=== PATIENT | male | born 1960 | race Caucasian/White ===

== ENCOUNTER 2021-12-25 08:00 | Outpatient (CLI) | payer OTHER, SELFPAY ==
--- NOTE | ~2021-12-25 | CT_ITS ---
EXAMINATION: CT abdomen pelvis wo/w con DATE: 12/25/2021 08:40 INDICATION: Microscopic hematuria TECHNIQUE: Computed tomography (CT) of the abdomen and pelvis was performed without intravenous contr ast. CT of the abdomen and pelvis was then performed with a total of 130 mL Omnipaque 350 intravenous contrast using a double-bolus technique for simultaneous opacification of the renal parenchyma and r enal collecting system. The dose-length product (DLP) was 2110.09 mGy-cm. Automated exposure control and iterative reconstruction technique were employed. COMPARISON: None FINDINGS: Minimal dependent atelectasis is present in the lung bases. The heart size is normal. The l iver, spleen, gallbladder, and adrenal glands are normal. Punctate calcification in the tail of the p ancreas may reflect chronic pancreatitis. There is a 1.2 cm cyst of the right kidney upper pole. Ther e is a 1.0 cm cyst of the left kidney. No suspicious renal or urothelial lesion is identified. There is no hydronephrosis or hydroureter. There are stones measuring 15 mm and 5 mm in the bladder. There is marked hypertrophy of the central prostate. No pathologically enlarged abdominal or pelvic lymph n odes are identified. There is no free intraperitoneal gas or evidence of bowel obstruction. There are changes of left total hip arthroplasty. There is severe osteoarthritis of the right hip. There is mo derate lumbar spondylosis. IMPRESSION: 1. Two stones of the urinary bladder. No suspicious renal or urothelial lesion identified. Reviewed, dictated and finalized at location B.
[2021-12-25 08:28] LABS: Estimated Glomerular Filt Rate > 60
== END 2021-12-25 08:01 | disposition home or self-care (01) ==
LOC: ANHIMG 08:06
PROVIDERS: PCP Internal Medicine; Visit Provider Urology
DX: R31.29 Other microscopic hematuria (principal); N28.1 Cyst of kidney, acquired; M16.11 Unilateral primary osteoarthritis, right hip; M47.816 Spondylosis without myelopathy or radiculopathy, lumbar region
CPT/HCPCS: 74178; Q9967

== ENCOUNTER 2022-02-04 13:52 | Outpatient (CLI) | payer OTHER, SELFPAY ==
--- NOTE | 2022-02-04 14:17 | ECG_ITS ---
Measurements Intervals [place] Rate: 69 P: 34 GA: 151 QRS: 24 QRSD: 106 T: 41 QT: 392 QTc: 422 Interpretive Statements SINUS RHYTHM DELAYED PRECORDIAL R/S TRANSITION BASELINE ARTIFACT- I, II, III, AVR, AVL, AVF, V1 BORDERLINE ECG Electronically Signed On 02-04-2022 14:34:46 CDT by Wesley Castro D.O.
[2022-02-04 15:15] LABS: Anion Gap 7 mmol/L (8-16); Blood Urea Nitrogen 15 mg/dL (9-20); Carbon Dioxide 29 mmol/L (22-30); Chloride 103 mmol/L (98-107); Estimated Glomerular Filt Rate > 60; Glucose 127 mg/dL (65-110); Potassium 4.7 mmol/L (3.4-5.0); Sodium 139 mmol/L (137-145)
== END 2022-02-04 13:53 | disposition home or self-care (01) ==
PROVIDERS: PCP Internal Medicine; Visit Provider Urology
DX: Z01.818 Encounter for other preprocedural examination (principal); E11.9 Type 2 diabetes mellitus without complications; R94.31 Abnormal electrocardiogram [ECG] [EKG]
CPT/HCPCS: 36415; 80048; 93005

== ENCOUNTER 2022-02-11 01:18 | Day surgery (SDC) | payer OTHER, SELFPAY ==
--- NOTE | 2022-02-03 09:39 | PC.NURSE ---
Report to the Outpatient Waiting Room, entrance under the green pavilion located off [facility], at time on date . OR Time: . - You and your visitor will be asked a series of questions to screen for COVID 19 for your protection. - Only one visitor is allowed at this time. - The patient visitor is requested to leave or wait in car when not with patient. - A mask is required within the hospital. Patients may have clear liquids (water, carbonated beverages, clear teas, apple juice) until 3 hours prior to surgery with a maximum of 20 ounces. - No food from midnight until time of surgery - Infants may have breast milk until 4 hours before surgery, infant formula 6 hours prior to surgery. - Children will be allowed to drink immediately following surgery. If applicable, please bring a bottle or sippy cup to assist with drinking. Juice, water, soda, and popsicles are readily available. For infants on formula, please bring formula the day of surgery. Pacifiers are allowed. Take the following medications with a SIP of water the morning of surgery: Medications to discontinue per physician Date to take last dose Please no make-up, nail lao, hairspray, perfume, deodorant, or body powder the day of surgery. No jewelry (including any body piercings) or valuables the day of surgery, leave them at home. Please take a shower or bath the night before, or the morning of, surgery with an antibacterial soap. Wear comfortable, loose fitting clothing. Children are encouraged to wear pajamas. - Jewelry must be removed prior to entering the operating room. Rings and piercings that are not removed may be cut off. - The hospital will not accept responsibility for valuables. - Please leave all valuables, including medications, at home the day of surgery. If you are going home after surgery, a licensed electric truck driver must drive you home. - NO public transportation without another adult. - We recommend that an adult stay with you for 24 hours following discharge. - We also recommend that you do not drive, make important decision, drink alcoholic beverages, or take any drugs that were not prescribed by your health care provider for at least 24 hours after your discharge time. For Pediatric surgeries, we recommend two adults accompany the child home (only one inside the building at this time). Follow any additional instructions given to you from your surgeon. If you or anyone in your household have experienced Covid symptoms in the past week, please notify your surgeon or the nurse liaison at the phone number below for possible testing. Telephone instructions given to and asked if any additional questions and then verbalized understanding. Patient advised to call surgeon office or pre surgery nurse liaison [phone] if any additional questions.
--- NOTE | 2022-02-03 09:40 | PC.NURSE ---
Report to the Outpatient Waiting Room, entrance under the green pavilion located off [facility], at time 0600____ on date ___02/11/22____. OR Time: _729__. - You and your visitor will be asked a series of questions to screen for COVID 19 for your protection. - Only one visitor is allowed at this time. - The patient visitor is requested to leave or wait in car when not with patient. - A mask is required within the hospital. Patients may have clear liquids (water, carbonated beverages, clear teas, apple juice) until 3 hours prior to surgery with a maximum of 20 ounces. - No food from midnight until time of surgery - Infants may have breast milk until 4 hours before surgery, formula 6 hours prior to surgery. - Children will be allowed to drink immediately following surgery. If applicable, please bring a bottle or sippy cup to assist with drinking. Juice, water, soda, and popsicles are readily available. For infants on formula, please bring formula the day of surgery. Pacifiers are allowed. Take the following medications with a SIP of water the morning of surgery: NONE Medications to discontinue per physician NONE Date to take last dose Please no make-up, nail andorran, hairspray, perfume, deodorant, or body powder the day of surgery. No jewelry (including any body piercings) or valuables the day of surgery, leave them at home. Please take a shower or bath the night before, or the morning of, surgery with an antibacterial soap. Wear comfortable, loose fitting clothing. Children are encouraged to wear pajamas. - Jewelry must be removed prior to entering the operating room. Rings and piercings that are not removed may be cut off. - The hospital will not accept responsibility for valuables. - Please leave all valuables, including medications, at home the day of surgery. If you are going home after surgery, a licensed superintendent drivers must drive you home. - NO public transportation without another adult. - We recommend that an adult stay with you for 24 hours following discharge. - We also recommend that you do not drive, make important decision, drink alcoholic beverages, or take any drugs that were not prescribed by your health care provider for at least 24 hours after your discharge time. For Pediatric surgeries, we recommend two adults accompany the child home (only one inside the building at this time). Follow any additional instructions given to you from your surgeon. If you or anyone in your household have experienced Covid symptoms in the past week, please notify your surgeon or the nurse liaison at the phone number below for possible testing. Telephone instructions given to __PATIENT and asked if any additional questions and then verbalized understanding. Patient advised to call surgeon office or pre surgery nurse liaison [phone] if any additional questions.
[2022-02-03 09:45] VITALS: BMI 29.0
--- NOTE | 2022-02-08 07:11 | P.HP_ITS ---
History of Present Illness History of Present Illness Consent: Risks, benefits, and alternatives have been discussed and questions answered. Patient agrees to proceed with procedure. Chief complaint: Bladder Stones Narrative: Gavin Poe is a 61 year old male who is known to us with a longstanding abnormal PSA. He has had prior negative prostate biopsies and, more recently, a normal prostate MRI. While following this he developed urinary frequency urgency and dysuria. CT scan abdomen pelvis reveals 2 bladder calculi. He has started finasteride and presents now for cystoscopy with laser lithotripsy and extraction bladder calculi. He is where the risk including, but not limited to, adverse cardiopulmonary events, recurrent bladder and calculi and hematuria [facility], [facility] Social History Social History Smoking status: Never smoker Alcohol intake: current Alcohol use details: 1 DRINK EVERY 2 MONTHS Substance use: never Meds Home Medications and Allergies Home Medications Medication Instructions Recorded Confirmed Type atorvastatin 10 mg PO HS 02/03/22 02/03/22 History finasteride 5 mg PO DAILY 02/03/22 02/03/22 History glipizide 10 mg PO DAILY 02/03/22 02/03/22 History metformin 500 mg PO BID 02/03/22 02/03/22 History sildenafil 100 mg PO PRN 02/03/22 02/03/22 History tamsulosin 0.4 mg PO DAILY 02/03/22 02/03/22 History Allergies Allergy/AdvReac Type Severity Reaction Status Date / Time Penicillins Allergy Hives Verified 02/03/22 09:31 Assessment and Plan Assessment and plan (1) BPH loc w urin obs/LUTS: Code(s): N40.1 - Benign prostatic hyperplasia with lower urinary tract symptoms Status: Acute (2) Bladder stones: Code(s): N21.0 - Calculus in bladder Status: Acute Assessment and Plan: * Cystoscopy, laser lithotripsy with bladder calculus removal
[2022-02-11] VITALS (9 sets, daily range): BP systolic 99–127; BP diastolic 69–85; PULSE 56–88; RESP 10–20; TEMP 36.7–37.1; O2SAT 98–99
--- NOTE | 2022-02-11 06:21 | WPDHPUPDATE1 ---
History and Physical Update Update Date/Time: 02/11/22 06:21 History and Physical has been reviewed, including an updated exam of the patient. There are NO changes in the patient's condition. Risks, benefits, and alternatives have been discussed and questions answered. Patient agrees to proceed with procedure.
[2022-02-11 06:43] LABS: Glucose Point of Care 140 mg/dl (65-105)
--- NOTE | 2022-02-11 06:43 | WPDANESEPPF ---
Anes - Initial Pre Proc Eval Procedure: Operation Date: 02/11/22 07:30 Proposed Procedures p Cystoscopy with Bladder Stone Extraction - Travis Myers MD s Laser Lithotripsy - Travis Myers MD Date/Time: 02/11/22 06:43 Surgeon: Travis Myers MD Pre Op Diagnosis: Bladder Stones Patient Data Age: 61 Gender: M Height: 1.85 m Weight: 100 kg Allergies Allergy/AdvReac Type Severity Reaction Status Date / Time Penicillins Allergy Hives Verified 02/03/22 09:31 Home Medications Medication Instructions Recorded Confirmed Type atorvastatin 10 mg PO HS 02/03/22 02/03/22 History finasteride 5 mg PO DAILY 02/03/22 02/03/22 History glipizide 10 mg PO DAILY 02/03/22 02/03/22 History metformin 500 mg PO BID 02/03/22 02/03/22 History sildenafil 100 mg PO PRN 02/03/22 02/03/22 History tamsulosin 0.4 mg PO DAILY 02/03/22 02/03/22 History Patient hx anesthesia problems: none Family hx anesthesia problems: none Results Review: All pre-operative results and documents have been reviewed as part of the pre-operative evaluation. [facility] Past Medical History Medical History Diabetes Hyperlipidemia Spontaneous pneumothorax Social History Social History Smoking status: Never smoker Alcohol intake: current Alcohol use details: 1 DRINK EVERY 2 MONTHS Substance use: never Living arrangements: with family Anes - Eval Final PreProcedure Day of Procedure 02/11/22 06:43 Patient weight: overweight Heart: regular rate and rhythm Lungs: clear to auscultation Airway: Mallampati scale class II Neurological: alert and oriented Last oral intake: >/= 8 hours ASA classification: III Emergent: no Anesthetic plan: proceed Anesthesia type and monitoring: general LMA and standard monitoring Results Review: All pre-operative results and documents have been reviewed as part of the pre-operative evaluation. Informed Consent: The patient's anesthetic plan and its attendant risks and benefits were discussed with the patient/family/POA. Questions were solicited and answers provided to the satisfaction of the patient/family/POA.
[2022-02-11] MEDS: LACTATED RINGERS 1,000 ML 30 ML IV CONT ×2 (06:45→08:01)
[2022-02-11] MEDS: ceFAZolin 2 GM/D5W 50 ML 2 GM/50 ML BAG IVPB (07:24)
[2022-02-11] MEDS: LIDOCAINE HCL 2% GEL UROJET 10 ML PKG MUCOUS MEM (07:40)
--- NOTE | 2022-02-11 07:58 | W.PM.PROC2 ---
Procedure Note - Detailed Date of Procedure 02/11/22 Pre-op Diagnosis Bladder stones, BPH Post-op Diagnosis Same Procedure Performed Cystoscopy, laser lithotripsy with extraction of bladder stone Surgeon Travis Myers MD Anesthesia General Description of Procedure The patient is brought to the operative suite where he was prepped and draped in a routine sterile fashion while in the dorsal lithotomy position after the uneventful induction of a general anesthetic. A 21F rigid cystoscope was placed in his bladder. He has no urethral strictures but moderate prostatic hyperplasia. He has a moderate median lobe enlargement with an estimated prostatic urethral length of approximately 3.0cm. He has single 2.5-3cm bladder calculus Using a 1000 micron holmium laser fiber laser this stone is fractured into smaller particles. The particles are evacuated through a 24F resectoscope sheath using both the [employer] evacuator and by direct extraction with the loop electrode. There is some minimal hematuria at the termination that procedure and therefore I did place a 18F catheter with continuous irrigation. The patient was taken to the recovery room having tolerated the procedure well. Estimated Blood Loss 5 Drains Yes Packing No Pathology Yes Complications No immediate complications Condition Stable Disposition PACU
[2022-02-11 08:16] LABS: Glucose Point of Care 149 mg/dl (65-105)
== END 2022-02-11 09:45 | disposition home or self-care (01) ==
PROVIDERS: PCP Internal Medicine; Visit Provider Urology
PROC: (CPT 52352; principal; 2022-02-11 07:30)
PROC: (CPT 52318; 2022-02-11 07:30)
DX: N21.0 Calculus in bladder (principal); N40.1 Benign prostatic hyperplasia with lower urinary tract symptoms; E11.9 Type 2 diabetes mellitus without complications; E78.5 Hyperlipidemia, unspecified; R97.20 Elevated prostate specific antigen [PSA]; R30.0 Dysuria; R39.15 Urgency of urination; Z79.84 Long term (current) use of oral hypoglycemic drugs
CPT/HCPCS: 52318; 36415; 80048; 82365; 82948; 88300; 93005; A9270; C1769; J0690; J1100; J2405; J2704; J7120

== ENCOUNTER 2025-01-14 13:40 | Outpatient (CLI) | payer OTHER, SELFPAY ==
--- NOTE | ~2025-01-14 | XR_ITS ---
Supine and upright views of the abdomen Clinical history: Kidney stone Findings: Bowel gas pattern is nonspecific. No evidence for obstruction or free air. No abnormal mass lesion or calcification is seen. Osseous structures are intact. Impression: No significant abnormality is seen. Reviewed, dictated and finalized at [facility]. Impression: No significant abnormality is seen.
== END 2025-01-14 13:41 | disposition home or self-care (01) ==
LOC: MICIMG 13:42
PROVIDERS: PCP Internal Medicine; Visit Provider Urology
DX: N20.0 Calculus of kidney (principal)
CPT/HCPCS: 74018